=== PATIENT | female | born 1990 | race Caucasian/White ===

== ENCOUNTER → 2017-02-07 | Outpatient (CLI) | payer OTHER ==
[~2017-02-07] MED LIST: CIPR-280 PO; OMEP20CA10 PO; PHEN-850 PO; mirena IL
== END ==
LOC: LABN 17:11
PROVIDERS: ATTEND Family Medicine
DX: Z72.51 High risk heterosexual behavior (principal)
CPT/HCPCS: 87491; 87591

== ENCOUNTER → 2017-02-13 | Outpatient (CLI) | payer OTHER ==
--- NOTE | 2017-02-13 11:38 | DI ---
Indication: ITS.REASON: R19.00 ABD/PELVIC LUMP, MASS PROCEDURE: US PELVIC (NON-OB): Encounter: Initial Comparison: None FINDINGS: Transabdominal pelvic imaging was performed. The uterus measures 7.8 x 4.9 x 4.9 cm. The parenchyma is homogeneous without fibroids. Intrauterine device appears appropriately positioned. Both ovaries are identified and normal in appearance. The right ovary measures 3.5 x 1.3 x 2.8 cm. The left ovary measures 3.2 x 1.6 x 1.9 cm. There are no abnormal adnexal masses detected. Isoechoic lesion in the right groin area of palpable concern measuring 3.2 x 1.2 x 2.5 cm in size. This could represent an enlarged lymph node. No internal vascularity seen. IMPRESSION: Isoechoic mass in the right groin area of concern could be due to an enlarged lymph node. Recommend further evaluation with contrast-enhanced CT. .
== END ==
LOC: IMA 10:43
PROVIDERS: ATTEND Family Medicine
DX: R19.09 Other intra-abdominal and pelvic swelling, mass and lump (principal)

== ENCOUNTER → 2017-02-21 | Outpatient (CLI) | payer OTHER ==
[~2017-02-21] MED LIST changes: +IOHEXOL 300 MG/ML 75ml INJECTION ONE; +NORMAL SALINE 100 ML ONE; +SALINE FLUSH 10ml SYRINGE ONE
--- NOTE | 2017-02-21 11:20 | DI ---
Indication: ITS.REASON: R19.03 RIGHT LOWER QUADRANT ABDOMINAL SWELLING, MASS AND LUMP PROCEDURE: CT ABD/PELVIS W/CONTRAST ONLY: Encounter: Initial Comparison: Pelvic ultrasound dated February 13, 2017 Technique: Axial CT images were performed through the abdomen and pelvis after the administration of intravenous contrast. Coronal and sagittal two-dimensional reformats. Automated Exposure Control and Iterative Reconstruction dose reducing techniques were utilized. Contrast: Omnipaque 300 75 mL Findings: The lung bases are clear. The liver is normal. The gallbladder, spleen, pancreas and adrenal glands are within normal limits. The kidneys are normal. Bladder is normal. Intrauterine device appears appropriate position within the central portion of the uterus. No free fluid. No evidence of a bowel obstruction. Small and large bowel are unremarkable. Bone windows appear normal. No adenopathy identified within the abdomen or pelvis. No adenopathy or mass seen in the right groin area of concern. There is slightly asymmetric region of fat best seen on coronal image #7 and axial image 70 in the area of the inguinal canal measuring 2.7 cm in diameter, similar to the measurements of the lesion on ultrasound. Impression: No adenopathy or mass seen in the right inguinal area of concern. There appears to be either a small lipoma or fat-containing inguinal hernia. .
== END ==
LOC: IMA 10:36
PROVIDERS: ATTEND Family Medicine
DX: R19.03 Right lower quadrant abdominal swelling, mass and lump (principal); R93.8 Abnormal findings on diagnostic imaging of other specified body structures
CPT/HCPCS: 74177; J7050; Q9967